=== PATIENT | male | born 1945 | race Caucasian/White ===

== ENCOUNTER 2019-04-20 21:51 | Inpatient (IN) | payer MEDICARE, BC ==
[~2019-04-20] VITALS: Ht 182.9 cm; Wt 75.3 kg
[2019-04-20] MEDS ORDERED: NITROFURANTOIN/NITROFURAN MAC 100 MG CAPSULE ONE (21:58)
--- NOTE | 2019-04-20 21:59 | NUR ---
Pt. here for voluntary admit to MHU, A/Ox3, NAD, water given for pt. comfort,
[2019-04-20] MEDS ORDERED: NITROFURANTOIN/NITROFURAN MAC 100 MG CAPSULE PO ONE (22:00)
[2019-04-20] MEDS ORDERED: LATA2.5D7 EACHEYE (22:03)
[2019-04-20] MEDS ORDERED: ATOR10TA PO (22:03)
[2019-04-20] MEDS ORDERED: ASPI81TA44 PO (22:03)
[2019-04-20] MEDS ORDERED: ALPR0.5T8 PO (22:03)
--- NOTE | 2019-04-20 22:25 | NUR ---
Pt. taken off unit via stretcher, all belongings w/ pt., chart taken over, NAD
--- NOTE | 2019-04-20 22:27 | NUR ---
Pt. admitted to GPS, under care of Dr. Oliveira Belongs List completed
[2019-04-20 22:30] VITALS: BP 131/70
--- NOTE | 2019-04-20 22:45 | NUR ---
GPS: 74 years old male patient admitted for voluntary to [facility],under . patient is alert and oriented x3, ambulatory. no c/o pain or discomfort at this time. c/o anxiety and panic attacks. patient is cooperative with care. Ativan 1mg po given for anxiety. assisted in bed. v/s taken and recorded.
[2019-04-20] MEDS ORDERED: TEMAZEPAM 7.5 MG CAPSULE PO PRN (23:00)
[2019-04-20] MEDS ORDERED: MAGNESIUM HYDROXIDE 30 ML LIQUID UDC PO PRN (23:00)
[2019-04-20] MEDS ORDERED: MAG HYDROX/AL HYDROX/SIMETH 30 ML LIQUID UDC PO PRN (23:00)
[2019-04-20] MEDS ORDERED: ACETAMINOPHEN 325 MG TABLET PO PRN (23:00)
--- NOTE | 2019-04-21 | NUR ---
patient c/o anxiety. ativan 1 mg po given.
--- NOTE | 2019-04-21 01:00 | NUR ---
patient is calm resting in bed. ativan prn effective for anxiety.
[2019-04-21] MEDS: LORAZEPAM 1 MG TABLET PO PRN ×3 (06:02→14:19)
--- NOTE | 2019-04-21 06:18 | NUR ---
GPS: Remain calm and cooperative. ativan given x2 for anxiety and effective. slept 3 hrs through the night. refused sleeping meds. continue plan of care.
[2019-04-21 08:34] VITALS: BP 136/70
--- NOTE | 2019-04-21 14:24 | NUR ---
GPS : CALLED AND SPOKE WITH DR. SEAY FOR MED RECON, STILL WAITING FOR THE ORDERS
[2019-04-21] MEDS: CLONAZEPAM 0.5 MG TABLET PO SCH ×2 (16:58→20:01)
[2019-04-21] MEDS: SERTRALINE HCL 50 MG TABLET PO SCH (16:58)
--- NOTE | 2019-04-21 18:13 | NUR ---
GPS: RECEIVED PATIENT AOX 4,[facility] AMBULATORY, PATIENT VERY ANXIOUS WENT TO NURSING STATION ASKING FOR MEDICATION, PATIENT ALREADY TOOK MEDS 2 HOURS PRIOR THE ANXIETY, HOWEVER PATIENT COOPERATIVE AND ABLE TO VERBALIZE HIS NEEDS, PATIENT COMPLIANT WITH MEDICATION, ABLE TO REDIRECT ANXIETY WITH ADLS, SEEN AND EXAMINED BY DR. STEELE , WITH ORDERS MADE AND CARRIED OUT PATIENT MADE AWARE,
[2019-04-21 19:42] VITALS: BP 100/60
[2019-04-21] MEDS: ATORVASTATIN 10 MG TABLET PO SCH (20:01)
[2019-04-21] MEDS: LATANOPROST OPHT DROP 2.5 ML BOTTLE EACHEYE SCH (20:02)
--- NOTE | 2019-04-22 06:03 | NUR ---
GPS: Remain calm and cooperative. no aggressive behavior noted.no c/o pain or discomfort. slept 7 hrs through the night. continue plan of care.
[2019-04-22 06:44] LABS: BASOPHILS % (AUTO) 0.6 % (0.0-2.0); EOSINOPHILS # (AUTO) 0.1 K/uL (0.0-0.7); HEMATOCRIT 41.6 % (36.7-47.1); HEMOGLOBIN 14.1 g/dL (12.5-16.3); LYMPHOCYTES # (AUTO) 1.7 K/uL (20.0-40.0); LYMPHOCYTES % (AUTO) 26.8 % (20.5-51.5); MEAN CORPUSCULAR HGB CONC 34 g/dL (32.5-36.3); MEAN CORPUSCULAR VOLUME 91.7 fL (73.0-96.2); MONOCYTES # (AUTO) 0.5 K/uL (2.0-10.0); MONOCYTES % (AUTO) 8.3 % (0.0-11.0); NEUTROPHILS % (AUTO) 62.3 % (38.5-71.5); PLATELET COUNT (AUTO) 169 K/uL (152-348); RED BLOOD CELL COUNT(AUTO) 4.53 MIL/uL (4.06-5.63); WHITE BLOOD COUNT (AUTO) 6.5 K/uL (3.6-10.2)
[2019-04-22 07:02] LABS: CARBON DIOXIDE 25 mmol/L (21-32); CHLORIDE 108 mmol/L (98-107); CREATININE 1.1 mg/dL (0.6-1.3); GLUCOSE 97 mg/dL (74-106); MAGNESIUM 2.2 mg/dL (1.8-2.4); PHOSPHOROUS 3.8 mg/dL (2.5-4.9); POTASSIUM 4.5 mmol/L (3.5-5.1); UREA NITROGEN, BLOOD 28 mg/dL (7-18)
[2019-04-22 07:30] VITALS: BP 105/67
[2019-04-22] MEDS: SERTRALINE HCL 50 MG TABLET PO SCH (08:26)
[2019-04-22] MEDS: ASPIRIN EC 81 MG TABLET.DR PO SCH (08:26)
[2019-04-22] MEDS: CLONAZEPAM 0.5 MG TABLET PO SCH ×2 (08:26→16:59)
[2019-04-22] MEDS: LORAZEPAM 1 MG TABLET PO PRN (11:43)
[2019-04-22 16:00] VITALS: BP 103/58
[2019-04-22 20:09] VITALS: BP 97/55
[2019-04-22] MEDS: ATORVASTATIN 10 MG TABLET PO SCH (20:24)
[2019-04-22] MEDS: NITROFURANTOIN/NITROFURAN MAC 100 MG CAPSULE PO SCH (20:24)
[2019-04-22] MEDS: LATANOPROST OPHT DROP 2.5 ML BOTTLE EACHEYE SCH (20:24)
[2019-04-23 07:30] VITALS: BP 129/78
[2019-04-23] MEDS: CLONAZEPAM 0.5 MG TABLET PO SCH ×3 (08:04→16:59)
[2019-04-23] MEDS: NITROFURANTOIN/NITROFURAN MAC 100 MG CAPSULE PO SCH ×2 (08:04→20:16)
[2019-04-23] MEDS: ASPIRIN EC 81 MG TABLET.DR PO SCH (08:04)
[2019-04-23] MEDS: SERTRALINE HCL 100 MG TABLET PO SCH (08:06)
[2019-04-23 15:18] VITALS: BP 119/71
--- NOTE | 2019-04-23 17:33 | NUR ---
DOCTOR CEDRIC LEFT MESSAGE TO PATIENTS DAUGHTER
[2019-04-23 20:15] VITALS: BP 113/59
[2019-04-23] MEDS: ATORVASTATIN 10 MG TABLET PO SCH (20:16)
[2019-04-23] MEDS: LATANOPROST OPHT DROP 2.5 ML BOTTLE EACHEYE SCH (20:16)
[2019-04-24 07:30] VITALS: BP 123/71
[2019-04-24] MEDS: ASPIRIN EC 81 MG TABLET.DR PO SCH (08:00)
[2019-04-24] MEDS: SERTRALINE HCL 100 MG TABLET PO SCH (08:00)
[2019-04-24] MEDS: CLONAZEPAM 0.5 MG TABLET PO SCH ×3 (08:00→17:14)
[2019-04-24] MEDS: NITROFURANTOIN/NITROFURAN MAC 100 MG CAPSULE PO SCH ×2 (08:00→20:57)
[2019-04-24] MEDS: LORAZEPAM 1 MG TABLET PO PRN (09:51)
[2019-04-24 15:33] VITALS: BP 114/67
--- NOTE | 2019-04-24 18:57 | NUR ---
GPS: SPOKE WITH PATIENT DAUGHTER SHE ASKING IF POSSIBLE TO TALK WITH
[2019-04-24 19:43] VITALS: BP 109/70
--- NOTE | 2019-04-24 20:00 | NUR ---
RECEIVED PATIENT IN THE DAY ROOM. HE IS NOTED A/O X 4, CALM AND PLEASANT UPON APPROACHED. HE IS ABLE TO AMBULATE WITH STEADY GAIT AND ABLE TO VERBALIZED FEELINGS. PATIENT NOTED LESS ANXIOUS. DENIES SI/HI. HE IS ABLE TO CFS. V/S STABLE AT THIS TIME. PT WAS REASSURED FOR HIS SAFETY. WILL CONTINUE TO MONITOR.
[2019-04-24] MEDS: ATORVASTATIN 10 MG TABLET PO SCH (20:57)
[2019-04-24] MEDS: LATANOPROST OPHT DROP 2.5 ML BOTTLE EACHEYE SCH (20:57)
[2019-04-25] MEDS: LORAZEPAM 1 MG TABLET PO PRN ×2 (06:09→14:59)
[2019-04-25 07:53] VITALS: BP 123/71
[2019-04-25] MEDS: ASPIRIN EC 81 MG TABLET.DR PO SCH (08:33)
[2019-04-25] MEDS: NITROFURANTOIN/NITROFURAN MAC 100 MG CAPSULE PO SCH ×2 (08:33→20:36)
[2019-04-25] MEDS: SERTRALINE HCL 100 MG TABLET PO SCH (08:33)
[2019-04-25] MEDS: CLONAZEPAM 0.5 MG TABLET PO SCH ×3 (08:33→17:10)
[2019-04-25 15:38] VITALS: BP 112/69
--- NOTE | 2019-04-25 18:04 | NUR ---
Pt received this morning sitting in bed. Pt assessed, AOx4, showing good insight. Pt denies pain and discomfort, no acute distress noted throughout the shift. Denies SI/HI and able to CFS. Pt compliant with medications, and cooperative with care provided. VSS. PRN Ativan 1mg administered this afternoon when Pt expressed feeling dizzy, nervous, and anxiety. Reported effective. Will continue to monitor for safety.
--- NOTE | 2019-04-25 18:40 | NUR ---
CALLED AND SPOKE WITH PATIENTS OSMAN, REGARDING THEIR CONCERN WITH PSYCHOLOGIST , AWARE THAT DR. DFUF IS OFF UNTIL MAY 02, THEY WANT TO DO F/UP WHEN SHE COME BACK
[2019-04-25 19:50] VITALS: BP 97/55
[2019-04-25] MEDS: LATANOPROST OPHT DROP 2.5 ML BOTTLE EACHEYE SCH (20:36)
[2019-04-25] MEDS: ATORVASTATIN 10 MG TABLET PO SCH (20:36)
--- NOTE | 2019-04-25 21:47 | NUR ---
Received pt resting in bed. AAO x4. No acute distress noted. Denies pain/ discomfort. Due meds given as ordered. Cooperative and compliant. Denies SI/HI/AH/VH. Able to CFS. Noted pt ambulating steadily in the hallway. Pt spent time in the day room to watch tv and have snacks. Pt is now back to bed. Safety measures maintained. Will continue to monitor.
[2019-04-26] MEDS ORDERED: ZOLPIDEM 5 MG TABLET PO PRN (01:35)
[2019-04-26 07:30] VITALS: BP 131/80
[2019-04-26] MEDS ORDERED: CLONAZEPAM 1 MG TABLET PO SCH (09:00)
[2019-04-26] MEDS: ASPIRIN EC 81 MG TABLET.DR PO SCH (09:52)
[2019-04-26] MEDS: NITROFURANTOIN/NITROFURAN MAC 100 MG CAPSULE PO SCH ×2 (09:52→20:26)
[2019-04-26] MEDS: CLONAZEPAM 0.5 MG TABLET PO SCH ×3 (09:52→18:15)
[2019-04-26] MEDS: SERTRALINE HCL 100 MG TABLET PO SCH (09:52)
--- NOTE | 2019-04-26 15:17 | NUR ---
Gps/Station Baggage Agent-C/o dizziness, patient walking around instructed to stay in bed for now, lower ext. elevated . Fluids offered and encouraged. B/P checked lying 124/72 96% sat. HR 61, sitting 96/58 HR 62 97% room air, standing b/p 75/46 96 % 02 sat. HR 74.Leg Assembler informed.
[2019-04-26 16:00] VITALS: BP 138/73
[2019-04-26 18:16] VITALS: BP 110/62
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
--- NOTE | 2019-04-26 19:20 | NUR ---
PT PLEASANT WHEN APPROACH. PT NO S.I. PT IN NO ACUTE DISTRESS. SAFETY AND COMFORT PROVIDED. WILL CONTINUE TO MONITOR.
[2019-04-26 20:11] VITALS: BP 125/73
[2019-04-26] MEDS: ATORVASTATIN 10 MG TABLET PO SCH (20:26)
[2019-04-26] MEDS: LATANOPROST OPHT DROP 2.5 ML BOTTLE EACHEYE SCH (20:27)
[2019-04-27] MEDS: LORAZEPAM 1 MG TABLET PO PRN (06:28)
--- NOTE | 2019-04-27 06:37 | NUR ---
PT SLEPT 7.3 HOURS. PT SHOWS NO ACUTE DISTRESS. PT COMPLIANT WITH CARE. PRESCRIBED MEDICATION GIVEN AND PT TOLERATED IT WELL. PT GIVEN 0628H ATIVAN BECAUSE HE IS FEELING ANXIOUS. PT TOLERATED IT WELL. SAFETY AND COMFORT PROVIDED. WILL ENDORSE ACCORDINGLY TO INCOMING NURSE FOR CONTINUITY OF CARE.
[2019-04-27 07:30] VITALS: BP 102/65
[2019-04-27] MEDS: CLONAZEPAM 0.5 MG TABLET PO SCH ×3 (08:18→16:21)
[2019-04-27] MEDS: ASPIRIN EC 81 MG TABLET.DR PO SCH (08:18)
[2019-04-27] MEDS: SERTRALINE HCL 100 MG TABLET PO SCH (08:18)
[2019-04-27] MEDS: NITROFURANTOIN/NITROFURAN MAC 100 MG CAPSULE PO SCH ×2 (08:18→21:16)
[2019-04-27 16:00] VITALS: BP 123/68
--- NOTE | 2019-04-27 16:17 | NUR ---
Discharge Note: Patient will be discharged back home [[id number], [place] ]. Patient�s � Kellie Goyal [[phone]] will be picking up patient at 1:00pm tomorrow, Sunday April 28, 2019. Patient is alert and oriented x4, denies suicidal ideation, and is aware and agreeable with discharge plan. Upon spouse request, Health Aide provided referral to [facility] [[phone]] for potential future placement or home health resources. Patient was provided with a referral to [facility] where he can walk in Tuesday from 8:00-5:00pm should he need psychiatric intervention. Patient was provided with outpatient mental health resources to [facility] , [facility] Rasmussen , and the National Suicide Prevention Lifeline .
[2019-04-27] MEDS ORDERED: MECLIZINE HCL 12.5 MG TABLET PO PRN (17:30)
[2019-04-27 19:42] VITALS: BP 104/65
[2019-04-27] MEDS: ATORVASTATIN 10 MG TABLET PO SCH (21:16)
[2019-04-27] MEDS: LATANOPROST OPHT DROP 2.5 ML BOTTLE EACHEYE SCH (21:19)
[2019-04-28 07:30] VITALS: BP 124/75
[2019-04-28] MEDS: LORAZEPAM 1 MG TABLET PO PRN (07:35)
[2019-04-28] MEDS: CLONAZEPAM 0.5 MG TABLET PO SCH ×2 (08:57→13:11)
[2019-04-28] MEDS: NITROFURANTOIN/NITROFURAN MAC 100 MG CAPSULE PO SCH (08:57)
[2019-04-28] MEDS: ASPIRIN EC 81 MG TABLET.DR PO SCH (08:58)
[2019-04-28] MEDS: SERTRALINE HCL 100 MG TABLET PO SCH (08:58)
--- NOTE | 2019-04-28 13:22 | NUR ---
Gps/Installation Technician- Called Kellie (patient's ) reviewed medications , claimed she believed patient has some of his medications at home. and daughter to provide transportation. Noted patient had no belongings here anymore, as noted family signed papers , saying belongings returned to family. Will clarify and double check with them upon showing up to the MHU.
--- NOTE | 2019-04-28 15:30 | NUR ---
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
== END 2019-04-28 15:30 | disposition home or self-care (01) | DRG 880 ==
LOC: ER 21:54 → GPS 22:00
PROVIDERS: ADMIT Psychiatry & Neurology Psychiatry; ATTEND Student in an Organized Health Care Education/Training Program
DX: F41.9 Anxiety disorder, unspecified (principal); N39.0 Urinary tract infection, site not specified; F32.9 Major depressive disorder, single episode, unspecified; Z85.51 Personal history of malignant neoplasm of bladder; Z95.0 Presence of cardiac pacemaker; H40.9 Unspecified glaucoma; E78.5 Hyperlipidemia, unspecified; Z79.82 Long term (current) use of aspirin; Z79.899 Other long term (current) drug therapy; R42 Dizziness and giddiness
CPT/HCPCS: 36415; 83735; 84100; 84443; 85025; 93307; A4663; J8597